=== PATIENT | female | born 1970 | race Caucasian/White ===

== ENCOUNTER 2018-04-03 05:54 | Emergency (ER) | payer OTHER ==
[~2018-04-03] VITALS: Ht 165.1 cm; Wt 59.1 kg
[2018-04-03 05:55] VITALS: BP 172/104
[2018-04-03] MEDS ORDERED: ANUS2.5C2 TOP (06:29)
[2018-04-03] MEDS ORDERED: NAPR-50 PO (06:29)
== END 2018-04-03 06:39 | disposition home or self-care (01) ==
LOC: M ED 05:54
DX: M65.841 Other synovitis and tenosynovitis, right hand (principal); M65.842 Other synovitis and tenosynovitis, left hand; M65.4 Radial styloid tenosynovitis [de Quervain]; K64.4 Residual hemorrhoidal skin tags; Z88.1 Allergy status to other antibiotic agents

== ENCOUNTER → 2018-06-13 | Outpatient (REF) | payer OTHER ==
[~2018-06-13] MED LIST: ANUS2.5C2 TOP; NAPR-50 PO
[2018-06-13 13:05] LABS: HEMOGLOBIN 13.8 g/dl (12.0-15.5); MEAN CORPUSCULAR HGB CONC 32.9 g/dl (32.0-36.5); MEAN CORPUSCULAR VOLUME 91.3 fl (80.0-96.0); PLATELET COUNT, AUTOMATED 345 10^3/uL (150-450); WHITE BLOOD COUNT 7.6 10^3/uL (4.0-10.0)
[2018-06-13 13:20] LABS: C REACTIVE PROTEIN QUANTITATIV < 0.30 MG/DL (0.00-0.30); CHOLESTEROL LEVEL 189 MG/DL (<200); CHOLESTEROL RISK RATIO 3.315 (<5); FREE T4 1.05 NG/DL (0.76-1.46); HDL CHOLESTEROL 57 MG/DL (>40); LDL CHOLESTEROL 116 MG/DL (<100); NON-HDL-C 132 MG/DL; RHEUMATOID FACTOR QUANT < 10.0 IU/ML (<15.0); TOTAL 25(OH) VITAMIN D 22.2 NG/ML (30.0-100.0); TRIGLYCERIDES LEVEL 78 MG/DL (<150)
[2018-06-13 14:41] LABS: ERYTHROCYTE SEDIMENTATION RATE 5 mm/hr (0-20)
[2018-06-14 15:10] LABS: ANTINUCLEAR ANTIBODIES DIRECT Negative (Negative)
[2018-06-17 00:09] LABS: CYCLIC CITRULLINATED PEPTIDE 4 units (0-19)
== END ==
LOC: M SFHCPLAZ 09:12
PROVIDERS: ATTEND Nurse Practitioner Family
DX: Z00.00 Encounter for general adult medical examination without abnormal findings (principal); M25.50 Pain in unspecified joint; F32.9 Major depressive disorder, single episode, unspecified; N91.2 Amenorrhea, unspecified; Z13.220 Encounter for screening for lipoid disorders

== ENCOUNTER → 2018-07-14 | Outpatient (CLI) | payer OTHER ==
[~2018-07-14] MED LIST changes: -NAPR-50 PO; +NAPR-837 PO
--- NOTE | 2018-07-14 14:48 | REPMRS ---
Patient History The patient states she has not had a clinical breast exam in over a year. Patient is postmenopausal. No known family history of cancer. No Hormone Replacement Therapy Digital Woman Screen Mammo: July 14, 2018 - Exam #: [id number] Bilateral CC and MLO view(s) were taken. Technologist: Kenna Venegas, Technologist FINDINGS: The breast tissue is heterogeneously dense. This may lower the sensitivity of mammography. There is no evidence of dominant mass, architectural distortion, or clustered microcalcification typical of malignancy. 3-D tomosynthesis shows no additional findings. Assessment: BI-RADS/ACR category 1 mammogram. Negative Mammogram. Recommendation Routine screening mammogram of both breasts in 1 year (for women over age 40). This patient's Lifetime Breast Cancer RIsk is estimated at 8.4 %. This mammogram was interpreted with the aid of an FDA-approved computer-aided dectection system. Electronically Signed By: Jey Hilton MD 07/14/18 1448
== END ==
LOC: M WHC 13:03
PROVIDERS: ATTEND Nurse Practitioner Family
DX: Z12.31 Encounter for screening mammogram for malignant neoplasm of breast (principal)

== ENCOUNTER → 2018-11-07 | Outpatient (REF) | payer OTHER | LOC: M SFHCWAGY 14:33 | PROVIDERS: ATTEND Family Medicine | DX: Z12.4 Encounter for screening for malignant neoplasm of cervix (principal) ==

== ENCOUNTER → 2018-11-13 | Outpatient (CLI) | payer OTHER ==
--- NOTE | 2018-11-13 13:46 | REP ---
Pelvic sonography: History: Postmenopausal bleeding. Findings: Transabdominal and transvaginal scanning are performed. Uterine dimensions are normal measured at 7.6 x 3.7 x 4.5 cm. Endometrial echo 0.4 cm thick. There is a tiny echogenic focus near the fundal endometrium casting shadowing may be a calcification. No focal uterine mass is seen. Visualized bladder iglesias are smooth. Normal ovaries are seen. Right ovary dimensions are 2.2 x 1.2 x 2.5 cm. Left ovary measures 1.9 x 1.1 x 2.1 cm. Impression: Unremarkable pelvic sonography.
== END ==
LOC: M WHC 08:24
PROVIDERS: ATTEND Family Medicine
DX: N95.0 Postmenopausal bleeding (principal)